=== PATIENT | male | born 1965 | race Caucasian/White ===

== ENCOUNTER 2017-07-22 22:10 | Emergency (ER) | payer OTHER ==
[~2017-07-22] VITALS: Ht 175.3 cm; Wt 130.1 kg
[2017-07-22 22:54] LABS: HEMOGLOBIN 16.6 G/DL (12.5-16.6); MCH 31.3 PG (29.0-34.0); MCHC 35.3 G/DL (30.0-36.0); MCV 88.7 FL (86-99); PLATELET COUNT 161 K/uL (156-360); RBC DIS.WIDTH-CV 12.7 % (11.8-14.6); RBC DIS.WIDTH-SD 41.2 % (39-53); WHITE BLOOD COUNT 15.4 K/uL (4.1-10.2)
[2017-07-22 23:05] LABS: CHLORIDE 108 mEq/L (99-109); POTASSIUM 3.9 mEq/L (3.7-5.4); SODIUM 142 mEq/L (136-147)
[2017-07-22 23:06] LABS: GLUCOSE 107 mg/dL (70-99)
[2017-07-22 23:10] LABS: GFR ESTIMATE (CALCULATED) > 59 mL/min/ (58.99-99999)
[2017-07-22 23:11] LABS: UREA NITROGEN (BUN) 16 mg/dL (9-23)
[2017-07-22] MEDS ORDERED: PERCOCET 5/31 TABLET PO (23:32)
[2017-07-23 00:55] VITALS: BP 137/64
== END 2017-07-23 00:58 | disposition home or self-care (01) ==
LOC: EME → EDBD 22:10 → EME 22:10
PROVIDERS: Emergency Medicine
PROC: 2W3RX1Z Immobilization of Left Lower Leg using Splint (ICD-10-PCS; principal; 2017-07-22)
DX: S82.832A Other fracture of upper and lower end of left fibula, initial encounter for closed fracture (principal); S96.912A Strain of unspecified muscle and tendon at ankle and foot level, left foot, initial encounter; W18.30XA Fall on same level, unspecified, initial encounter; Y93.01 Activity, walking, marching and hiking; Y92.828 Other wilderness area as the place of occurrence of the external cause; G25.81 Restless legs syndrome; E78.5 Hyperlipidemia, unspecified; Z98.1 Arthrodesis status; F17.200 Nicotine dependence, unspecified, uncomplicated
CPT/HCPCS: 73590; 73610; 80048; 85027; 99281; 99285; J3010